=== PATIENT | female | born 1945 | race Caucasian/White ===

== ENCOUNTER → 2018-01-08 | Outpatient (CLI) | payer OTHER | END | disposition home or self-care (01) | LOC: RAH 12:10 | PROVIDERS: ATTEND Family Medicine | DX: Z12.31 Encounter for screening mammogram for malignant neoplasm of breast (principal) | CPT/HCPCS: 77067 ==

== ENCOUNTER 2019-08-24 11:31 | Observation (INO) | payer OTHER ==
[~2019-08-24] VITALS: Ht 165.1 cm; Wt 78.4 kg
[2019-08-24 12:07] LABS: BILIRUBIN,TOTAL 0.6 mg/dL (0.2-1.0); CREATININE 0.9 mg/dL (0.5-1.5); POTASSIUM 3.2 mmol/L (3.5-5.1); TOTAL PROTEIN, SERUM 8.8 g/dL (6.0-8.3)
[2019-08-24 12:09] LABS: BASOPHILS % (AUTO) 0.4 % (0.0-5.0); EOSINOPHILS % (AUTO) 3.6 % (0.0-8.0); HEMATOCRIT 41.7 % (36-48); LYMPHOCYTES % (AUTO) 39.4 % (21.0-51.0); MEAN CORPUSCULAR HEMOGLOBIN 30.2 pg (27.0-33.0); MEAN CORPUSCULAR HGB CONC 32.9 g/dL (32.0-36.0); MEAN CORPUSCULAR VOLUME 92.1 fL (79-99); MONOCYTES % (AUTO) 7.9 % (3.0-13.0); NEUTROPHILS % (AUTO) 48.3 % (40.0-77.0); PLATELET COUNT (AUTO) 183 K/uL (130-400); RED BLOOD CELL COUNT(AUTO) 4.53 MIL/uL (4.00-5.50); RED CELL DISTRIBUTION WIDTH 12.9 % (11.0-15.5); WHITE BLOOD COUNT (AUTO) 5.3 K/uL (4.8-10.8)
[2019-08-24 12:16] LABS: INR 0.95 (0.85-1.15); PARTIAL THROMBOPLASTIN TIME 29.2 SEC (26.3-35.5)
[2019-08-24 12:31] LABS: APPEARANCE,URINE Clear (CLEAR); BILIRUBIN,URINE Negative (NEGATIVE); COLOR,URINE Yellow (YELLOW); GLUCOSE, URINE (UA) Negative (NEGATIVE); KETONES,URINE Negative (NEGATIVE); LEUKOCYTE ESTERASE ,URINE Trace (NEGATIVE); NITRATE,URINE Negative (NEGATIVE); OCCULT BLOOD,URINE Negative (NEGATIVE); PROTEIN,URINE Negative (NEGATIVE); UROBILINOGEN,URINE 0.2 mg/dL (0.2-1.0)
[2019-08-24 12:33] LABS: AMPHET/METH SCREEN,URINE NEGATIVE (NEGATIVE); BARBITURATE SCREEN, URINE NEGATIVE (NEGATIVE); BENZODIAZEPINES SCREEN,URINE NEGATIVE (NEGATIVE); CANNABINOID SCREEN,URINE NEGATIVE (NEGATIVE); COCAINE SCREEN,URINE NEGATIVE (NEGATIVE); OPIATE SCREEN,URINE NEGATIVE (NEGATIVE); PHENCYCLIDINE SCREEN,URINE NEGATIVE (NEGATIVE)
[2019-08-24 13:02] LABS: BACTERIA,URINE Few /HPF (None Seen); RBC,URINE 0-1 /HPF (0-1); SQUAMOUS EPITHELIAL CELL,UR 0-2 /HPF (0-2); WBC,URINE 0-1 /HPF (0-1)
[2019-08-24] MEDS ORDERED: LIDOCAINE HCL-MPF 1% 2ML VIAL IV PRN (18:15)
[2019-08-24] MEDS ORDERED: POTASSIUM CHLORIDE 20MEQ/100ML 100 ML IV PRN (18:15)
[2019-08-24] MEDS ORDERED: ACETAMINOPHEN 325 MG TAB ONE (19:39)
[2019-08-24] MEDS ORDERED: FAMOTIDINE/PF 20 MG/2 ML VIAL IV ONE (21:13)
[2019-08-24] MEDS ORDERED: POTASSIUM CHLORIDE 20 MEQ ERTAB PO ONE ×2 (21:25→22:50)
[2019-08-25 05:25] LABS: BASOPHILS % (AUTO) 0.2 % (0.0-5.0); EOSINOPHILS % (AUTO) 5.1 % (0.0-8.0); HEMATOCRIT 35.3 % (36-48); LYMPHOCYTES % (AUTO) 36.8 % (21.0-51.0); MEAN CORPUSCULAR HEMOGLOBIN 30.4 pg (27.0-33.0); MEAN CORPUSCULAR HGB CONC 33.1 g/dL (32.0-36.0); MEAN CORPUSCULAR VOLUME 91.7 fL (79-99); MONOCYTES % (AUTO) 9.7 % (3.0-13.0); PLATELET COUNT (AUTO) 159 K/uL (130-400); RED BLOOD CELL COUNT(AUTO) 3.85 MIL/uL (4.00-5.50); RED CELL DISTRIBUTION WIDTH 12.9 % (11.0-15.5); WHITE BLOOD COUNT (AUTO) 5.1 K/uL (4.8-10.8)
[2019-08-25 05:42] LABS: INR 0.98 (0.85-1.15); PROTHROMBIN TIME 10.3 SEC (9.6-11.6)
[2019-08-25 05:50] LABS: CARBON DIOXIDE 30 mmol/L (21-32); CHLORIDE 104 mmol/L (101-111); CHOLESTEROL 199 mg/dL (<200); CREATINE KINASE, TOTAL 88 U/L (21-232); CREATININE 0.8 mg/dL (0.5-1.5); GLOMERULAR FILTR. RATE CALC 75 mL/min (>60); GLUCOSE,RANDOM 106 mg/dL (70-105); HDL CHOLESTEROL 59 mg/dL (35-85); LDL DIRECT 126 mg/dL (0-99); MYOGLOBIN 38 ng/mL (10-92); POTASSIUM 3.8 mmol/L (3.5-5.1); SODIUM SERUM 140 mmol/L (136-145); TRIGLYCERIDES 111 mg/dL (30-200); TROPONIN I < 0.04 ng/mL (0.00-0.06); UREA NITROGEN, BLOOD 14 mg/dL (7-18)
[2019-08-25] MEDS: FAMOTIDINE/PF 20 MG/2 ML VIAL IV SCH ×2 (09:00→15:28)
[2019-08-25] MEDS ORDERED: ACETAMINOPHEN 325 MG TAB ONE (10:32)
--- NOTE | 2019-08-25 11:26 | NUR ---
INITIAL SW met with patient. Patient states she lives with spouse. Emergency contact are her children: Dinora Benavidez, [phone] and Tony Dalton, [phone]. No home services. DME: glucometer (no insulin). Patient is able to complete ADL's and drives. PCP is Dr. Vicky Tidwell. Pharmacy is [facility] in [place]. DCP is home Patient's mailing address: [address], [place], [place]. Addendum: 08/25/19 at 1130 by GARETH BROWNE SS Amended: Links added.
[2019-08-25] MEDS ORDERED: OMEP20TA25 PO (12:58)
[2019-08-25] MEDS ORDERED: CHLO25TA3 PO (12:58)
[2019-08-25] MEDS ORDERED: ASPI-1197 PO (12:58)
[2019-08-25 13:12] VITALS: BP 116/85
--- NOTE | 2019-08-25 13:20 | NUR ---
ARRIVAL TO FLOOR PT IS AAOX3 DENIES CP DENIES SOB DENIES NV. BREATHING PATTERN IS EVEN AND UNLABORED, ON ROOM AIR. NO NEURO DEFICITS NOTED. FAMILY AT BEDSIDE, TELE PACK IS ON PATIENT. CALL LIGHT WITHIN REACH.
[2019-08-25 16:00] VITALS: BP 113/73
--- NOTE | 2019-08-25 17:18 | NUR ---
STATUS EATING DINNER, NO COMPLAINTS RESTING IN BED. FAMILY IS AT BEDSIDE.
[2019-08-25 19:00] VITALS: BP 106/65
[2019-08-25 23:00] VITALS: BP 97/64
[2019-08-26 03:00] VITALS: BP 116/71
[2019-08-26] MEDS ORDERED: ACETAMINOPHEN 325 MG TAB PO PRN (05:45)
[2019-08-26 07:46] VITALS: BP 120/73
[2019-08-26] MEDS: FAMOTIDINE/PF 20 MG/2 ML VIAL IV SCH (08:59)
[2019-08-26] MEDS ORDERED: LORATADINE 10 MG TABLET PO SCH (09:00)
[2019-08-26] MEDS ORDERED: ASPIRIN 81MG TAB.CHEW PO SCH (09:00)
--- NOTE | 2019-08-26 09:43 | NUR ---
DYSPHAGIA EVAVA HAWK. -S/S OF ASPIRATION. RECOMMEND REGULAR TEXTURE AND THIN LIQUIDS. PILLS WHOLE WITH LIQUIDS. Addendum: 08/26/[address] YEMI CORNEJO Amended: Links added.
--- NOTE | 2019-08-26 09:52 | NUR ---
COGNITIVE LINGUISTIC EVALUATION COMPLETED. WITHIN FUNCTIONAL LIMITS. EVALUATION: PATIENT WAS ORIENTED TO PERSON, PLACE, TIME, AND SITUATION. PATIENT EXPRESSES WANTS AND NEEDS. PATIENT RECALLS DETAILS FROM RECENT EVENTS. PATIENT PROVIDED FORM GRADER INFORMATION SUCH FAMILY NAMES, ADDRESS, AND MEDICAL HISTORY. PATIENT WAS ABLE TO COMPLETE EXECUTIVE FUNCTION TASKS SUCH MENTAL MANIPULATION, TELLING TIME, INFERENCE, REASONING, AND PROBLEM SOLVING. PER AT BEDSIDE, PATIENT IS CURRENTLY AT BASELINE. G CODES MEMORY: [id number] - CH [id number] -CH [id number] - CH Addendum: 08/26/[address] CLEMENTE Amended: Links added.
[2019-08-26 11:43] VITALS: BP 112/75
--- NOTE | 2019-08-26 11:46 | NUR ---
NUTRITION EDUCATION COMPLETED RD PROVIDED HEART HEALTHY DIET AND NUTRITION EDUCATION DUE TO ELEVATED LDL LAB VALUE. ALL QUESTIONS WERE ANSWERED AND PT VERBALIZED UNDERSTANDING. EDUCATION MATERIALS WERE PROVIDED WITH A LIST OF FOODS RECOMMENDED/ TO AVOID IN [place]. PT IS TOLERATING REGULAR TEXTURE, THIN LIQUIDS AT THIS TIME. NO COMPLAINTS OF N/V/C/D. LBM: 08/25. SKIN IS INTACT. RD RECOMMENDS TO CONTINUE CURRENT DIET. Addendum: 08/26/19 at [address] Amended: Links added.
[2019-08-26 15:22] VITALS: BP 132/72
== END 2019-08-26 15:59 | disposition home or self-care (01) ==
LOC: EDH 11:31 → EDHIP 12:59 → 2DH 08-25 12:29
PROVIDERS: ADMIT Internal Medicine; ATTEND Internal Medicine
DX: G45.4 Transient global amnesia (principal); R41.82 Altered mental status, unspecified; A38.9 Scarlet fever, uncomplicated; I51.89 Other ill-defined heart diseases; I10 Essential (primary) hypertension; E78.00 Pure hypercholesterolemia, unspecified; E78.5 Hyperlipidemia, unspecified; Z90.710 Acquired absence of both cervix and uterus
CPT/HCPCS: 36415 ×2; 70450; 70544; 70547; 70551; 71045; 80048; 80053; 80061; 80305; 81001; 82550 ×2; 83036; 83721; 83874; 84484 ×2; 85025 ×2; 85610 ×2; 85730; 92522; 92610; 93005 ×2; 93306; 93880; 95819; 96374; 96376; 97161; 99291; G0378 ×50; G8978; G8979; G8980; G8981; G8982; G8983; J3490 ×3

== ENCOUNTER → 2020-07-18 | Outpatient (CLI) | payer MEDICARE ==
[~2020-07-18] MED LIST: ASPI-1197 PO; CHLO25TA3 PO; OMEP20TA25 PO
== END | disposition home or self-care (01) ==
LOC: RAH 10:32
PROVIDERS: ATTEND Family Medicine Adult Medicine
DX: Z12.31 Encounter for screening mammogram for malignant neoplasm of breast (principal)
CPT/HCPCS: 77067